=== PATIENT | female | born 1955 | race Caucasian/White ===

== ENCOUNTER 2019-11-07 14:14 | Outpatient (CLI) | payer BC, MEDICARE, SELFPAY ==
--- NOTE | ~2019-11-07 | US_ITS ---
EXAMINATION:US venous doppler LE BI INDICATION:Localized edema TECHNIQUE: Multiple grayscale, color flow and Doppler images of the lower extremity deep venous syste ms were obtained and reviewed. COMPARISON:No prior studies for comparison. FINDINGS: The common femoral, superficial femoral and popliteal veins demonstrate normal respiratory variation, augmentation and compressibility. Color flow is also seen within the posterior tibial, pe roneal, greater saphenous and profunda veins. IMPRESSION: 1: No lower extremity deep venous thrombosis. Reviewed, dictated and finalized at location A.
== END 2019-11-07 14:15 | disposition home or self-care (01) ==
LOC: ANHIMG 14:23
PROVIDERS: PCP Family Medicine; Visit Provider Physician Assistant
DX: R60.0 Localized edema (principal); M79.604 Pain in right leg; M79.605 Pain in left leg
CPT/HCPCS: 93970

== ENCOUNTER 2020-01-29 13:30 | Outpatient (CLI) | payer BC, MEDICARE, SELFPAY ==
--- NOTE | ~2020-01-29 | DEXA_ITS ---
Bone Density Report Name: Hayley Van Age: 64 Sex: Female Ethnicity: White Date of : 1955 Indication: postmenopausal; Referring Provider: RAMIRO ROSADO Study: Bone densitometry was performed. Exam Date: January 29, 2020 Accession number: [id number] Bone Density: Region BMD T-score Z-score Classification AP Spine (L2, L3, L4) 1.152 0.7 2.6 Normal Femoral Neck (Left) 0.710 -1.3 0.4 Osteopenia Total Hip (Left) 1.058 1.0 2.3 Normal Total Hip Bilateral Avg 1.045 0.8 2.2 Normal Femoral Neck (Right) 0.790 -0.5 1.1 Normal Total Hip (Right) 1.031 0.7 2.1 Normal World Health Organization criteria for BMD impression classify patients as: Normal (T-score at or above -1.0), Osteopenia (T-score between -1.0 and -2.5), or Osteoporosis (T-score at or below -2.5). Clinical Information Provided by Patient: Patient maximum height was 60 Menopause Age: 50 No regular weight bearing exercise Onset of menses at age 11 Number of children 2 Impression: The patient has low bone mass, based on the Left Femoral Neck T-score. Discussion: BONE DENSITY IS LOW AT ONE OR MORE SKELETAL SITES. This patient's lowest T-score is low at one or more skeletal sites. It meets the World Health Organization's (WHO) criteria for ?low bone mass? (T-score between -1.0 and -2.5). The patient's 10-year risk of fracture as calculated by FRAX is less than the threshold where pharmacological therapy is recommended by the National Osteoporosis Foundation (NOF). However, all treatment decisions require clinical judgment and consideration of individual patient factors, including patient preferences, comorbidities, previous drug use, risk factors not captured in the FRAX model (e.g., frailty, falls, vitamin D deficiency, increased bone turnover, interval significant decline in bone density) and possible under or overestimation of fracture risk by FRAX. The patient should follow a healthful lifestyle (good nutrition with adequate calcium and vitamin D, and appropriate weight-bearing exercise). Follow-Up: Consider repeating this study in 2 to 3 years to reassess this patient's status, or sooner if there is some new clinical indication. Reported by: BONI on 01/29/2020 1:58:00 PM. Reviewed, dictated and finalized at location Félix LEAVITT
== END 2020-01-29 13:31 | disposition home or self-care (01) ==
PROVIDERS: PCP Family Medicine; Visit Provider Physician Assistant
DX: Z78.0 Asymptomatic menopausal state (principal); M85.852 Other specified disorders of bone density and structure, left thigh
CPT/HCPCS: 77080

== ENCOUNTER 2020-05-17 10:53 | Outpatient (CLI) | payer BC, MEDICARE, SELFPAY ==
--- NOTE | ~2020-05-17 | MM_ITS ---
EXAMINATION: MM screening rama BI w vinicio HISTORY: Screening mammogram TECHNIQUE: Craniocaudal and mediolateral oblique 3-D tomosynthesis images were obtained and synthetic 2-D images were generated. CAD analysis was submitted and interpreted. COMPARISON: 03/06/2019, 04/05/2017, 04/18/2015 bilateral digital screening mammogram examinations BREAST PARENCHYMAL COMPOSITION: The breasts are heterogeneously dense, which may obscure small masses . FINDINGS: There are scattered bilateral occasional primarily punctate benign-appearing microcalcifica tions. There is no evidence of suspicious mass, calcification, or architectural distortion to suggest malignancy in either breast. There has been no suspicious interval change. IMPRESSION: 1. No mammographic evidence of malignancy. 2. Recommend routine screening mammography in one year. BI-RADS Category 2: Benign finding(s). Reviewed, dictated and finalized at location A. BUILDER
== END 2020-05-17 10:54 | disposition home or self-care (01) ==
LOC: ANHIMG 10:56
PROVIDERS: PCP Family Medicine; Visit Provider Family Medicine
DX: Z12.31 Encounter for screening mammogram for malignant neoplasm of breast (principal)
CPT/HCPCS: 77063; 77067

== ENCOUNTER 2021-01-20 12:32 | Outpatient (CLI) | payer BC, MEDICARE, SELFPAY ==
--- NOTE | ~2021-01-20 | XR_ITS ---
EXAMINATION: XR shoulder RT min 2V DATE: 01/20/2021 13:18 INDICATION: Right shoulder pain. TECHNIQUE: 4 views of right shoulder were obtained. COMPARISON: None. FINDINGS: Bone alignment is normal. No fracture. There is mild osteoarthritis of glenohumeral joint a nd moderate osteoarthritis of acromioclavicular joint. IMPRESSION: 1. Polyarticular osteoarthritis. Reviewed, dictated and finalized at location A.
== END 2021-01-20 12:33 | disposition home or self-care (01) ==
PROVIDERS: PCP Family Medicine; Visit Provider Physician Assistant
DX: M25.511 Pain in right shoulder (principal); M19.011 Primary osteoarthritis, right shoulder
CPT/HCPCS: 73030

== ENCOUNTER 2021-01-22 14:41 | Outpatient (CLI) | payer BC, MEDICARE, SELFPAY ==
--- NOTE | ~2021-01-22 | XR_ITS ---
XR hand LT 2V DATE: 01/22/2021 15:22 INDICATION: Right hand pain for 3 months TECHNIQUE: 3 views COMPARISON: None FINDINGS: There is polyarticular osteoarthritis involving multiple joints including first carpometaca rpal, first and third metacarpophalangeal and multiple interphalangeal joints. No fracture or dislocation, periosteal reaction or bone destruction. IMPRESSION: Polyarticular osteoarthritis Reviewed, dictated and finalized at location A.
--- NOTE | ~2021-01-22 | XR_ITS ---
XR hand RT 2V DATE: 01/22/2021 15:21 INDICATION: Right hand pain for 3 months TECHNIQUE: 3 views COMPARISON: None FINDINGS: There is polyarticular osteoarthritis involving multiple joints including first and third m etacarpophalangeal and the interphalangeal joints in particular. No fracture, dislocation, periosteal reaction or bone destruction. IMPRESSION: Polyarticular osteoarthritis Reviewed, dictated and finalized at location A.
== END 2021-01-22 14:42 | disposition home or self-care (01) ==
PROVIDERS: PCP Family Medicine; Visit Provider Physician Assistant
DX: M19.041 Primary osteoarthritis, right hand (principal); M19.042 Primary osteoarthritis, left hand
CPT/HCPCS: 73120

== ENCOUNTER → 2021-02-07 02:16 | Outpatient (CLI) | payer BC, MEDICARE, SELFPAY ==
[2021-02-07 19:28] LABS: SARS-CoV-2 RNA PCR Negative
== END ==
PROVIDERS: Physician Assistant; PCP Family Medicine; Visit Provider Family Medicine
DX: R05 Cough (principal); Z20.822 Contact with and (suspected) exposure to COVID-19
CPT/HCPCS: C9803; U0003; U0005

== ENCOUNTER 2021-03-25 14:57 | Outpatient (CLI) | payer BC, MEDICARE, SELFPAY ==
--- NOTE | ~2021-03-25 | US_ITS ---
EXAMINATION: US venous doppler [facility] DATE: 03/25/2021 15:49 INDICATION: Lower limb pain. TECHNIQUE: Grayscale ultrasound images without and with compression and Doppler ultrasound images of the bilateral lower extremity veins were obtained. COMPARISON: Ultrasound 11/07/2019 FINDINGS: The visualized portions of right common femoral vein, profunda (deep) femoral vein, femoral vein, pop liteal vein, peroneal veins, posterior tibial veins, and greater saphenous vein outflow are patent. The visualized portions of left common femoral vein, profunda femoral vein, femoral vein, popliteal v ein, peroneal veins, posterior tibial veins, and greater saphenous vein outflow are patent. IMPRESSION: 1. No deep venous thrombosis. Reviewed, dictated and finalized at location A.
== END 2021-03-25 14:58 | disposition home or self-care (01) ==
LOC: ANHIMG 15:10
PROVIDERS: PCP Family Medicine; Visit Provider Physician Assistant
DX: M79.604 Pain in right leg (principal); M79.605 Pain in left leg; M79.89 Other specified soft tissue disorders
CPT/HCPCS: 93970

== ENCOUNTER 2021-03-27 07:09 | Outpatient (CLI) | payer BC, MEDICARE, SELFPAY ==
--- NOTE | ~2021-03-27 | XR_ITS ---
EXAMINATION: XR ankle LT 2V DATE: 03/27/2021 07:43 INDICATION: Left ankle pain TECHNIQUE: Two views of the left ankle are obtained.. COMPARISON: None. FINDINGS: There is soft tissue swelling of ankle. Bone alignment is normal. There is no fracture. Pos terior and plantar calcaneal enthesophytes are noted. IMPRESSION: 1. No acute osseous abnormality. Reviewed, dictated and finalized at location A.
--- NOTE | ~2021-03-27 | XR_ITS ---
EXAMINATION: XR tibia fibula RT 2V INDICATION: Right leg pain TECHNIQUE: Two views of the right tibia and fibula are obtained. COMPARISON: None available FINDINGS: Bone alignment is normal. There is no fracture, dislocation, or subluxation. The soft tissu es are unremarkable. IMPRESSION: 1. No acute osseous abnormality. Reviewed, dictated and finalized at location A.
--- NOTE | ~2021-03-27 | XR_ITS ---
EXAMINATION: XR ankle RT 2V INDICATION: Right ankle pain TECHNIQUE: Two views of the right ankle are obtained. COMPARISON: None available FINDINGS: There is no fracture, dislocation, or subluxation. Posterior and plantar calcaneal enthesop hytes are noted. There is mild osteoarthritis of the midfoot. IMPRESSION: 1. No acute osseous abnormality. Reviewed, dictated and finalized at location A.
--- NOTE | ~2021-03-27 | XR_ITS ---
EXAMINATION: XR tibia fibula LT 2V INDICATION: Left leg pain TECHNIQUE: Two views of the left tibia and fibula are obtained. COMPARISON: None available FINDINGS: Bone alignment is normal. There is no fracture. There is mild soft tissue swelling of ankle . IMPRESSION: 1. No acute osseous abnormality. Reviewed, dictated and finalized at location A.
--- NOTE | ~2021-03-27 | XR_ITS ---
EXAMINATION: XR knee LT 2V INDICATION: Left knee pain TECHNIQUE: Two views of the left knee are obtained. COMPARISON: 03/06/2019 FINDINGS: There is no fracture, dislocation, or subluxation. There is mild tricompartmental osteoarth ritis characterized by tiny marginal osteophytes. There is no joint effusion. IMPRESSION: 1. No acute osseous abnormality. Reviewed, dictated and finalized at location A.
--- NOTE | ~2021-03-27 | XR_ITS ---
EXAMINATION: XR knee RT 2V INDICATION: Right knee pain TECHNIQUE: Two views of the right knee are obtained. COMPARISON: 03/06/2019 FINDINGS: There is no fracture, dislocation, or subluxation. There is mild tricompartmental osteoarth ritis characterized by tiny marginal osteophytes. There is no joint effusion. IMPRESSION: 1. No acute osseous abnormality. Reviewed, dictated and finalized at location A.
== END 2021-03-27 07:10 | disposition home or self-care (01) ==
LOC: ANHIMG 07:14
PROVIDERS: PCP Family Medicine; Visit Provider Physician Assistant
DX: M79.604 Pain in right leg (principal); M79.605 Pain in left leg
CPT/HCPCS: 73560; 73590; 73600

== ENCOUNTER 2021-06-05 16:02 | Outpatient (CLI) | payer BC, MEDICARE, SELFPAY ==
--- NOTE | ~2021-06-05 | XR_ITS ---
XR foot RT min 3V 06/05/2021 16:40 Indication: Right foot pain. Lacerations. Procedure: 4 views right foot Comparison: No prior studies for comparison. Findings: There is moderate osteoarthritis of the first MTP joint. Lisfranc joint intact. No acute fr acture or traumatic malalignment. Small degenerative calcaneal enthesophytes. No foreign bodies. Impression: 1: No acute bone or joint abnormality. Reviewed, dictated and finalized at location A. US MONITOR Impression: 1: No acute bone or joint abnormality.
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
== END 2021-06-05 16:03 | disposition home or self-care (01) ==
PROVIDERS: PCP Family Medicine; Visit Provider Physician Assistant
DX: M25.561 Pain in right knee (principal); M79.671 Pain in right foot
CPT/HCPCS: 73560; 73630

== ENCOUNTER 2021-06-17 07:07 | Outpatient (RCR) | payer BC, MEDICARE, SELFPAY ==
[2021-06-17 10:13] VITALS: BMI 43.6
--- NOTE | 2021-06-23 08:26 | PCWOUND ---
KERWIN NOTE patient left message asking to clarify her next appointment. Called patient this morning to confirm appointment for tomorrow 06/24/21 at 0830. Patient asked if we would just be cleaning her wounds or if we would be scraping them again. Explained to the patient that cleaning the wounds can also include debriding loose necrotic tissue or yellow slough from the wound beds. I also explained that I could not promise that it wouldn't be done as this is part of the process of wound healing. Patient then stated then I'm just going to go ahead and cancel the appointment, I'm not going through that again. Appointment was cancelled. Called Dr. Schuler's/Geetha MONTALVO office to inform of cancellation. Will fax note to office for patient's chart.
== END 2021-08-21 12:27 | disposition home or self-care (01) ==
LOC: ANHWOC 07:07
PROVIDERS: PCP Family Medicine; Visit Provider Physician Assistant
DX: S90.811D Abrasion, right foot, subsequent encounter (principal); S90.812D Abrasion, left foot, subsequent encounter
CPT/HCPCS: 99212; G0463

== ENCOUNTER 2021-08-10 16:55 | Outpatient (CLI) | payer BC, MEDICARE, SELFPAY ==
--- NOTE | ~2021-08-10 | XR_ITS ---
XR lumbar spine 2-3V DATE: 08/10/2021 18:19 INDICATION: Back pain. Diffuse arthralgia. TECHNIQUE: AP, lateral, coned lateral lumbosacral views COMPARISON: 10/24/2017 CT lumbar spine 05/05/2016 lumbar spine FINDINGS: Normal alignment of the lumbar spine. There is moderate degenerative disc disease at L2-3, L3-4, L4-5. No fracture or bone destruction. Included lower thoracic and lumbar pedicles are intact. The sacroiliac joints are normal. Status post cholecystectomy. IMPRESSION: Moderate degenerative disc disease at L2-3, L3-4 and L4-5 Reviewed, dictated and finalized at location A.
--- NOTE | ~2021-08-10 | XR_ITS ---
XR hand BI arthritis min 3V DATE: 08/10/2021 18:20 INDICATION: Bilateral hand pain. Diffuse arthralgia. TECHNIQUE: 4 views of each hand COMPARISON: 01/22/2021 bilateral hand examinations FINDINGS: There is polyarticular osteoarthritis involving particularly the right first and third meta carpophalangeal and multiple bilateral interphalangeal joints.. No fracture, dislocation, periosteal reaction or bone destruction or erosive change or chondrocalcino sis is noted. IMPRESSION: Polyarticular osteoarthritis Reviewed, dictated and finalized at location A.
--- NOTE | ~2021-08-10 | XR_ITS ---
XR knee LT 3V DATE: 08/10/2021 18:19 INDICATION: Left knee pain. Diffuse arthralgia. TECHNIQUE: [place] and standing AP and lateral views COMPARISON: None FINDINGS: Superior pole patellar enthesopathy at quadriceps tendon insertion and lesser enthesopathy at the patellar tendon insertion. No fracture or dislocation or joint effusion. No periosteal reaction or bone destruction. No radiopaq ue intra-articular loose body or chondrocalcinosis. Joint spaces appear relatively preserved. IMPRESSION: Patellar enthesopathy Reviewed, dictated and finalized at location A. IMPRESSION: Patellar enthesopathy
--- NOTE | ~2021-08-10 | XR_ITS ---
XR ankle RT 2V DATE: 08/10/2021 18:18 INDICATION: Right ankle pain. Diffuse arthralgia. TECHNIQUE: AP and lateral views COMPARISON: 03/27/2021 right ankle FINDINGS: Moderate diffuse soft tissue swelling. No fracture or dislocation of the ankle or disruption of the ankle mortise. No periosteal reaction or bone destruction. Moderate plantar and posterior calcaneal enthesopathy. IMPRESSION: Soft tissue swelling Moderate plantar and posterior calcaneal enthesopathy Reviewed, dictated and finalized at location A.
--- NOTE | ~2021-08-10 | XR_ITS ---
XR sacroiliac joints min 3V DATE: 08/10/2021 18:18 INDICATION: Bilateral sacroiliac pain. Diffuse arthralgia. TECHNIQUE: AP and bilateral oblique views COMPARISON: None FINDINGS: No fracture or dislocation, ankylosis or erosive change. IMPRESSION: Negative Reviewed, dictated and finalized at Location A. Reviewed, dictated and finalized at location A. IMPRESSION: Negative
--- NOTE | ~2021-08-10 | XR_ITS ---
XR chest 2V DATE: 08/10/2021 18:18 INDICATION: Diffuse arthralgia TECHNIQUE: PA and lateral views COMPARISON: None FINDINGS: Normal heart size. No hilar or mediastinal enlargement. No pulmonary infiltrate or consolid ation, pleural effusion or pulmonary vascular congestion or pneumothorax. Mild levoscoliosis of the upper thoracic spine. Minimal dextro scoliosis of the mid and lower thoraci c spine. There is mild to moderate degenerative spurring of the thoracic spine. Diffuse osteopenia. Status post cholecystectomy. IMPRESSION: No active cardiac pulmonary disease Status post cholecystectomy Osteopenia Degenerative spurring and mild scoliosis of the thoracic spine. Reviewed, dictated and finalized at location A.
--- NOTE | ~2021-08-10 | XR_ITS ---
XR foot LT min 3V DATE: 08/10/2021 18:19 INDICATION: Left foot pain. Diffuse arthralgia. TECHNIQUE: 4 views COMPARISON: None FINDINGS: Mild hallux valgus and bunion deformity. There is mild to moderate osteoarthritis at the fi rst metatarsophalangeal joint. Plantar and posterior moderately prominent calcaneal enthesopathy. Enthesopathy at the base of the fi fth metatarsal bone. No fracture, dislocation, periosteal reaction or bone destruction is detected. IMPRESSION: Plantar and posterior calcaneal and base of fifth metatarsal enthesopathy Mild hallux valgus and bunion deformity Mild to moderate osteoarthritis at first metatarsophalangeal joint Reviewed, dictated and finalized at location A. IMPRESSION: Plantar and posterior calcaneal and base of fifth metatarsal enthes opathy Mild hallux valgus and bunion deformity Mild to moderate osteoarthritis at first metatarsophalangeal joint
--- NOTE | ~2021-08-10 | XR_ITS ---
XR foot RT min 3V DATE: 08/10/2021 18:19 INDICATION: Right foot pain. Diffuse arthralgia. TECHNIQUE: 4 views COMPARISON: 06/05/2021 right foot FINDINGS: Enthesopathy at the plantar and posterior aspects of the calcaneus and base of the fifth me tatarsal bone. Mild hallux valgus and bunion deformity. There is moderate osteoarthritis at the first metatarsophala ngeal joint. No fracture or dislocation, periosteal reaction or bone destruction is detected. IMPRESSION: Plantar and posterior calcaneal and base of fifth metatarsal enthesopathy Mild hallux valgus and bunion deformity Osteoarthritis at first metatarsophalangeal joint Reviewed, dictated and finalized at location A. IMPRESSION: Plantar and posterior calcaneal and base of fifth metatarsal enthes opathy Mild hallux valgus and bunion deformity Osteoarthritis at first metatarsophalangeal joint
--- NOTE | ~2021-08-10 | XR_ITS ---
XR ankle LT 2V DATE: 08/10/2021 18:18 INDICATION: Left ankle pain. Diffuse arthralgia. TECHNIQUE: AP and lateral views COMPARISON: 03/27/2021 left ankle FINDINGS: Diffuse soft tissue swelling. No fracture or dislocation of the ankle or disruption of the ankle mortise is detected. No periosteal reaction or bone destruction. Prominent plantar and posterior calcaneal enthesopathy is again noted. IMPRESSION: Soft tissue swelling Plantar and posterior calcaneal enthesopathy Reviewed, dictated and finalized at location A.
--- NOTE | ~2021-08-10 | XR_ITS ---
XR knee RT 3V DATE: 08/10/2021 18:19 INDICATION: Right knee pain TECHNIQUE: [place] and standing AP and lateral views COMPARISON: 06/05/2021 right knee FINDINGS: There is patellar enthesopathy at the quadriceps and patellar tendon insertion sites. There is minimal periarticular spurring of the patella consistent with osteoarthritis. Joint spaces a ppear relatively preserved. Minimal peritendinous spurring of the medial femoral condyle consistent with osteoarthritis. No fracture or dislocation or joint effusion. No periosteal reaction or bone destruction. No radiopaq ue intra-articular loose body or chondrocalcinosis. IMPRESSION: Patellar enthesopathy Minimal osteoarthritis Reviewed, dictated and finalized at location A.
== END 2021-08-10 16:56 | disposition home or self-care (01) ==
PROVIDERS: PCP Family Medicine; Visit Provider Physician Assistant Medical
DX: M19.041 Primary osteoarthritis, right hand (principal); M19.042 Primary osteoarthritis, left hand; M19.072 Primary osteoarthritis, left ankle and foot; M77.32 Calcaneal spur, left foot; M19.071 Primary osteoarthritis, right ankle and foot; M77.31 Calcaneal spur, right foot; M51.36 Other intervertebral disc degeneration, lumbar region; Z90.49 Acquired absence of other specified parts of digestive tract; M85.88 Other specified disorders of bone density and structure, other site; M41.9 Scoliosis, unspecified
CPT/HCPCS: 71046; 72100; 72202; 73130; 73562; 73600; 73630

== ENCOUNTER 2021-09-09 08:31 | Outpatient (CLI) | payer BC, MEDICARE, SELFPAY ==
--- NOTE | ~2021-09-09 | MM_ITS ---
EXAMINATION: MM screening rama BI w vinicio HISTORY: Screening mammogram TECHNIQUE: Craniocaudal and mediolateral oblique 3-D tomosynthesis images were obtained and synthetic 2-D images were generated. CAD analysis was submitted and interpreted. COMPARISON: 05/17/2020, 03/06/2019, 04/05/2017 bilateral screening mammogram examinations BREAST PARENCHYMAL COMPOSITION: The breasts are heterogeneously dense, which may obscure small masses . FINDINGS: There is no evidence of suspicious mass, calcification, or architectural distortion to sugg est malignancy in either breast. There has been no suspicious interval change. IMPRESSION: 1. No mammographic evidence of malignancy. 2. Recommend routine screening mammography in one year. BI-RADS Category 1: Negative Reviewed, dictated and finalized at location A.
== END 2021-09-09 08:32 | disposition home or self-care (01) ==
LOC: ANHIMG 08:34
PROVIDERS: PCP Family Medicine; Visit Provider Physician Assistant
DX: Z12.31 Encounter for screening mammogram for malignant neoplasm of breast (principal)
CPT/HCPCS: 77063; 77067

== ENCOUNTER → 2021-09-29 00:23 | Outpatient (CLI) | payer BC, MEDICARE, SELFPAY ==
[2021-09-29 11:38] LABS: Influenza A QL RT-PCR Negative (Negative); Influenza B QL RT-PCR Negative (Negative); SARS-CoV-2 RNA PCR Positive
== END ==
PROVIDERS: PCP Family Medicine; Visit Provider Family Medicine
DX: U07.1 COVID-19 (principal)
CPT/HCPCS: 87502; C9803; U0003; U0005

== ENCOUNTER 2022-02-09 16:54 | Outpatient (CLI) | payer BC, MEDICARE, SELFPAY ==
--- NOTE | ~2022-02-09 | XR_ITS ---
EXAM: XR knee RT min 4V, XR knee LT min 4V DATE: 02/09/2022 17:53 HISTORY: M25.561 - Pain in right knee . COMPARISON: 08/10/2021. FINDINGS: Normal mineralization. No fracture or dislocation. No lytic or blastic lesion. Moderate me dial and lateral joint space narrowing. Mild tricompartmental osteophytosis. Bilateral quadriceps and patellar enthesopathy. No erosion or periosteal change. Soft tissues within normal limits. IMPRESSION: Moderate bilateral tricompartmental osteoarthritis of the knees. Reviewed, dictated and finalized at location K. IMPRESSION: Moderate bilateral tricompartmental osteoarthritis of the knees.
== END 2022-02-09 16:55 | disposition home or self-care (01) ==
LOC: ANHIMG 17:00
PROVIDERS: PCP Family Medicine; Visit Provider Physician Assistant
DX: M17.0 Bilateral primary osteoarthritis of knee (principal)
CPT/HCPCS: 73564

== ENCOUNTER 2022-04-07 07:11 | Outpatient (CLI) | payer BC, MEDICARE, SELFPAY ==
--- NOTE | ~2022-04-07 | CT_ITS ---
EXAMINATION: CT brain wo con DATE: 04/07/2022 07:47 INDICATION: Memory loss. Headaches every day for several months. TECHNIQUE: Computed tomography (CT) of the head was performed without intravenous contrast. The mA wa s adjusted according to patient size. Iterative reconstruction technique was employed. Exam dose: 60 5.33 mGy-cm total exam DLP. COMPARISON: None FINDINGS: No intracranial mass lesion or hemorrhage or cerebrovascular accident. No midline shift or mass effect. Minimal left basal ganglia calcification. Bilateral carotid siphon internal carotid artery calcification. No subdural or epidural hematoma is detected. There is mild soft tissue thickening along the medial wall the right maxillary sinus. The paranasal s inuses and mastoid air cells otherwise are unremarkable. No fracture or bone destruction of the cranial vault. IMPRESSION: Cerebral atherosclerosis No acute intracranial abnormality Reviewed, dictated and finalized at Location A. Reviewed, dictated and finalized at location A. ICER
== END 2022-04-07 07:12 | disposition home or self-care (01) ==
PROVIDERS: PCP Family Medicine; Visit Provider Physician Assistant
DX: R41.3 Other amnesia (principal); E11.9 Type 2 diabetes mellitus without complications; E66.9 Obesity, unspecified; E78.2 Mixed hyperlipidemia; I10 Essential (primary) hypertension; I67.2 Cerebral atherosclerosis
CPT/HCPCS: 70450

== ENCOUNTER 2023-06-04 09:34 | Outpatient (CLI) | payer BC, MEDICARE, SELFPAY ==
--- NOTE | ~2023-06-04 | XR_ITS ---
Left Shoulder Technique: AP and scapular Y views were obtained. Clinical History: Pain Findings: No fracture or dislocation is seen. Osseous alignment is anatomic. The glenohumeral and acr omioclavicular joint spaces are preserved. Soft tissues are unremarkable. Impression: Unremarkable left shoulder radiographs. Reviewed, dictated and finalized at [facility]. MOTIVE PARTS CLERK Impression: Unremarkable left shoulder radiographs.
--- NOTE | ~2023-06-04 | XR_ITS ---
Supine and upright views of the abdomen Clinical history: Abdominal pain Findings: Bowel gas pattern is nonspecific. No evidence for obstruction or free air. No abnormal mass lesion or calcification is seen. Osseous structures are intact. Impression: No significant abnormality is seen. Reviewed, dictated and finalized at [facility]. SPECIALIST Impression: No significant abnormality is seen.
--- NOTE | ~2023-06-04 | XR_ITS ---
Left Hand Technique: PA, oblique, and lateral views were obtained. Clinical History: Pain Findings: No acute fracture or dislocation is seen. Osseous alignment is anatomic. There are mild deg enerative changes in the DIP joints. Soft tissues are unremarkable. Impression: Mild degenerative changes, as above. Reviewed, dictated and finalized at [facility]. ET MAKER Impression: Mild degenerative changes, as above.
== END 2023-06-04 09:35 ==
PROVIDERS: PCP Physician Assistant; Visit Provider Physician Assistant
DX: R10.9 Unspecified abdominal pain (principal); M79.602 Pain in left arm; M19.042 Primary osteoarthritis, left hand
CPT/HCPCS: 73030; 73120; 74018

== ENCOUNTER 2023-10-04 16:55 | Outpatient (CLI) | payer BC, MEDICARE, SELFPAY ==
[2023-10-04 17:42] LABS: Hematocrit 34.7 % (37.0-47.0); Hemoglobin 10.8 g/dL (12.0-15.0); Mean Corpuscular HGB Conc 31.1 g/dl (32-36); Mean Corpuscular Hemoglobin 32.1 pg (26-34); Mean Corpuscular Volume 103.3 fl (80-100); Mean Platelet Volume 10.4 fl (7.4-10.4); Platelet Count Result 362 k/mm3 (150-375); Red Blood Count 3.36 M/mm3 (4.2-5.4); Red Cell Distribution Width 14.6 % (11.5-14.5); White Blood Count 10.4 K/mm3 (4.5-10.0)
[2023-10-04 19:18] LABS: Alanine Aminotransferase 17 U/L (6-35); Albumin Level 4.1 g/dL (3.5-5.1); Alkaline Phosphatase 125 U/L (38-126); Anion Gap 9 mmol/L (4-12); Aspartate Amino Transferase 21 U/L (14-36); Bilirubin,Total 0.6 mg/dL (0.2-1.3); Blood Urea Nitrogen 98 mg/dL (7-17); Calcium 9.6 mg/dL (8.4-10.2); Carbon Dioxide 22 mmol/L (22-30); Chloride 104 mmol/L (98-107); Estimated Glomerular Filt Rate 7; Glucose 104 mg/dL (65-110); Potassium 5.9 mmol/L (3.4-5.0); Sodium 135 mmol/L (137-145)
[2023-10-04 20:38] LABS: Hemoglobin A1C 4.8 % (<5.7)
== END 2023-10-04 16:56 | disposition home or self-care (01) ==
LOC: ANHLAB 16:58
PROVIDERS: PCP Family Medicine; Visit Provider Family Medicine
DX: R07.9 Chest pain, unspecified (principal); E11.9 Type 2 diabetes mellitus without complications; I10 Essential (primary) hypertension; R53.83 Other fatigue
CPT/HCPCS: 36415; 80053; 83036; 84443; 85027

== ENCOUNTER 2023-10-29 11:16 | Outpatient (CLI) | payer BC, MEDICARE, SELFPAY ==
[2023-10-29 13:41] LABS: Appearance Urine Cloudy (Clear); Bacteria Urine 1+ /hpf; Bilirubin Urine Negative (Negative); Blood Urine Negative (Negative); Color Urine Yellow (Yellow); Glucose Urine UA Negative (Negative); Ketones Urine Negative (Negative); Leukocyte Esterase Ur 2+ LEU/UL (Negative); Need Manual Microscopic Reviewed; Nitrate Urine Negative (Negative); Non Pathogenic Casts 0-2; Protein Urine Negative (Negative); RBC Urine 21-50 /hpf (0-2); Specific Grav Ur 1.005 (1.001-1.035); Squamous Epithelial Cell Urine Few /hpf (Few); Urobilinogen Urine 0.2 mg/dL (<2.0); pH Urine 7.5 (5.0-9.0)
[2023-10-29 13:42] LABS: Add Urine Microscopic? YES
== END 2023-10-29 11:17 | disposition home or self-care (01) ==
PROVIDERS: PCP Family Medicine; Visit Provider Family Medicine
DX: R30.0 Dysuria (principal); R35.0 Frequency of micturition
CPT/HCPCS: 81001; 87086

== ENCOUNTER 2024-01-05 12:18 | Outpatient (CLI) | payer MEDICARE, BC, SELFPAY ==
--- NOTE | ~2024-01-05 | XR_ITS ---
XR chest 2V 01/05/2024 12:47 Indication: Wheezing. Dementia. Procedure: AP and lateral views of the chest Comparison: 08/10/2021 Findings: Cardiomegaly with interstitial edema. Small pleural effusions. No pneumothorax. No acute os seous abnormality. Impression: 1: Cardiomegaly with interstitial edema. Reviewed, dictated and finalized at location B. Impression: 1: Cardiomegaly with interstitial edema.
== END 2024-01-05 12:19 | disposition home or self-care (01) ==
PROVIDERS: PCP Family Medicine; Visit Provider Physician Assistant Medical
DX: R06.2 Wheezing (principal); I51.7 Cardiomegaly; J81.1 Chronic pulmonary edema
CPT/HCPCS: 71046

== ENCOUNTER 2024-01-23 13:17 | Outpatient (CLI) | payer MEDICARE, SELFPAY ==
--- NOTE | 2024-01-23 13:21 | ECHO_ITS ---
Patient Info Name: Hayley Van Age: 68 years : 1955 Gender: Female Ht: 64 in Wt: 180 lbs BSA: 1.95 m2 HR: 81 bpm BP: 177 / 96 mmHg Heart Rhythm: Sinus Rhythm Technical Quality: Fair Exam Date: 01/23/2024 1:53 PM Exam Location: Echo Lab Patient Status: Outpatient Admit Date: 01/23/2024 Staff Ordering Physician: Ailyn Santamaria PA-C [employer] Operator: Emeli Mukherjee RDCS Attending Provider: Ailyn Santamaria PA-C Exam Type: CA echo doppler color flow Study Info Indications I51.7 - Cardiomegaly Complete two-dimensional, color flow and Doppler transthoracic echocardiogram is performed. Summary 1. Complete two-dimensional, color flow and Doppler transthoracic echocardiogram is performed. 2. Left ventricular chamber dimension is mildly enlarged. 3. Left ventricular systolic function is normal, estimated at 55-60%. 4. The left ventricular diastolic function is abnormal. 5. E/e' 14 is mildly elevated. 6. Left atrial chamber dimension is mildly enlarged. Left Ventricle E/e' 14 is mildly elevated. Left ventricular chamber dimension is mildly enlarged. Left ventricular systolic function is normal, estimated at 55-60%. The left ventricular diastolic function is abnormal. Right Ventricle Right ventricular systolic function is normal and with normal TAPSE 2.1 cm. Right ventricular chamber dimension is normal. Left Atria Left atrial chamber dimension is mildly enlarged. Right Atria Right atrial chamber dimension is normal. Aortic Valve The aortic valve is trileaflet. There is no aortic valve stenosis. There is no aortic valve regurgitation. Pulmonic Valve There is no pulmonic regurgitation. Mitral Valve There is no mitral valve stenosis. There is no mitral valve regurgitation. Tricuspid Valve There is no tricuspid valve regurgitation. Pericardium/Pleural There is no pericardial effusion. Inferior Vena Cava Normal inferior vena cava with >50% collapse upon inspiration consistent with normal right atrial pressure, 5 mmHg. Aorta The aortic root size at the sinus of Valsalva is normal. Left Ventricular Outflow Tract Name Value Normal LVOT 2D LVOT Diameter 2.0 cm LVOT Doppler LVOT Peak Gradient 3 mmHg LVOT Mean Gradient 2 mmHg LVOT VTI 17 cm LVOT VTI/AV VTI Ratio 0.8 LVOT Stroke Volume 53 ml LVOT CO 4.3 l/min LVOT CI 2.2 l/min/m2 Pulmonic Valve Name Value Normal RVOT Doppler RVOT Peak Gradient 1 mmHg PV Doppler PV Peak Gradient 3 mmHg Mitral Valve Name Value Normal
[2024-01-23 14:03] LABS: Anion Gap 11 mmol/L (4-12); Blood Urea Nitrogen 18 mg/dL (7-17); Calcium 9.3 mg/dL (8.4-10.2); Carbon Dioxide 30 mmol/L (22-30); Chloride 99 mmol/L (98-107); Estimated Glomerular Filt Rate 55; Glucose 104 mg/dL (65-110); Potassium 3.3 mmol/L (3.4-5.0); Sodium 140 mmol/L (137-145)
== END 2024-01-23 13:18 | disposition home or self-care (01) ==
PROVIDERS: PCP Family Medicine; Visit Provider Physician Assistant Medical
DX: I51.7 Cardiomegaly (principal); R60.9 Edema, unspecified; I10 Essential (primary) hypertension
CPT/HCPCS: 36415; 80048; 93306

== ENCOUNTER 2024-02-06 12:45 | Outpatient (CLI) | payer MEDICARE, SELFPAY ==
[2024-02-06 13:29] LABS: Anion Gap 11 mmol/L (4-12); Blood Urea Nitrogen 26 mg/dL (7-17); Carbon Dioxide 31 mmol/L (22-30); Chloride 98 mmol/L (98-107); Estimated Glomerular Filt Rate 55; Glucose 103 mg/dL (65-110); Potassium 3.9 mmol/L (3.4-5.0); Sodium 140 mmol/L (137-145)
== END 2024-02-06 12:46 | disposition home or self-care (01) ==
PROVIDERS: PCP Family Medicine; Visit Provider Family Medicine
DX: E87.6 Hypokalemia (principal)
CPT/HCPCS: 36415; 80048

== ENCOUNTER 2024-04-23 17:02 | Outpatient (CLI) | payer MEDICARE, SELFPAY ==
[2024-04-23 17:37] LABS: Basophils Percent Auto 0.2 % (0.2-1.2); Eosinophils Absolute Auto 0.2 K/mm3 (0-0.3); Eosinophils Percent Auto 1.4 % (0-4.4); Hematocrit 40.4 % (37.0-47.0); Hemoglobin 13.2 g/dL (12.0-15.0); Immature Granulocyte Absolute 0.03 K/mm3 (0.00-0.031); Immature Granulocyte Percent A 0.3 % (0-0.5); Lymphocytes Percent Auto 16.3 % (18.3-44.2); Mean Corpuscular HGB Conc 32.7 g/dl (32-36); Mean Corpuscular Hemoglobin 30.4 pg (26-34); Mean Corpuscular Volume 93.1 fl (80-100); Mean Platelet Volume 9.8 fl (7.4-10.4); Monocytes Absolute Auto 0.7 K/mm3 (0.1-0.6); Neutrophils Absolute Auto 7.8 K/mm3 (1.3-6.7); Neutrophils Percent Auto 74.8 % (45.5-73.1); Platelet Count Result 270 k/mm3 (150-375); Red Blood Count 4.34 M/mm3 (4.2-5.4); Red Cell Distribution Width 16.5 % (11.5-14.5); White Blood Count 10.4 K/mm3 (4.5-10.0)
[2024-04-23 17:44] LABS: Alanine Aminotransferase 17 U/L (6-35); Albumin Level 4.2 g/dL (3.5-5.1); Alkaline Phosphatase 65 U/L (38-126); Anion Gap 4 mmol/L (4-12); Aspartate Amino Transferase 26 U/L (14-36); Bilirubin,Total 0.6 mg/dL (0.2-1.3); Blood Urea Nitrogen 24 mg/dL (7-17); Calcium 9.3 mg/dL (8.4-10.2); Carbon Dioxide 34 mmol/L (22-30); Chloride 103 mmol/L (98-107); Estimated Glomerular Filt Rate > 60; Glucose 123 mg/dL (65-110); Potassium 3.5 mmol/L (3.4-5.0); Sodium 141 mmol/L (137-145)
== END 2024-04-23 17:03 | disposition home or self-care (01) ==
LOC: ANHLAB 17:06
PROVIDERS: PCP Family Medicine; Visit Provider Student in an Organized Health Care Education/Training Program
DX: K92.1 Melena (principal)
CPT/HCPCS: 36415; 80053; 85025